=== PATIENT | male | born 1960 | race Caucasian/White ===

== ENCOUNTER 2019-08-15 05:17 | Emergency (ER) | payer SELFPAY, OTHER ==
[~2019-08-15] VITALS: Ht 170.2 cm; Wt 81.6 kg
[2019-08-15 05:17] VITALS: BP 125/79
[~2019-08-15 05:17] MED LIST: IBUPROFEN600 MG ORAL
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
[2019-08-15 05:19] VITALS: BP 125/79
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
--- NOTE | 2019-08-15 05:30 | NUR ---
ED Nurse Note: Pt cleared by health care Provider for discharge. DC instructions/prescription was given and explained to pt and verbalized understanding of teachings. All medical deviecs such as ID band removed. Pt is AAO x4, ambulatory and left with all personal belongings with [facility].
== END 2019-08-15 05:45 ==
LOC: EDBD 05:17 → EDUNIT# 05:17 → EMR 05:41
DX: H10.213 Acute toxic conjunctivitis, bilateral (principal); I10 Essential (primary) hypertension
CPT/HCPCS: 99281